=== PATIENT | male | born 1950 | race Caucasian/White ===

== ENCOUNTER 2017-12-10 10:49 | Day surgery (SDC) | payer BC ==
[2017-12-10] MEDS ORDERED: PROPOFOL INJ 200 MG/20 ML VIAL IV ONE ×2 (12:17→13:34)
[2017-12-10] MEDS ORDERED: ALBUTEROL SULFATE 0.083% NEB 2.5 MG/3 ML AMPUL NEB ONE ×2 (12:30→12:34)
--- NOTE | 2017-12-10 14:23 | EKG REPORT ---
SEVERITY:- NORMAL ECG - SINUS RHYTHM : Confirmed by: Vince Geronimo MD 10-Dec-2017 14:21:45
--- NOTE | 2017-12-10 14:44 | Operative Report ---
Operative Report DATE OF SURGERY: 12/10/17 Operative Report: The risks, benefits and alternatives of the procedure including the risks of bleeding, perforation requiring surgery are explained to the patient in detail and informed consent was obtained. The patient is brought back to the operating room and placed in the left, lateral decubital position. Timeout was called. Propofol medication is administered. A rectal examination is done which did not reveal any masses, tears or fissures. An Olympus videoscope was inserted into the patient's rectum. The scope was then carefully advanced all the way to the cecum. The cecum was identified by the usual anatomical landmarks including the ileocecal valve as well as the appendiceal office. Photodocumentation is obtained. Scope was then sequentially pulled back via the rest segments of the colon including the ascending colon, hepatic flexure, transverse colon, splenic flexure, descending colon and finally in to the rectosigmoid portions of the colon. Retroflexion maneuvers performed. PREOPERATIVE DIAGNOSIS: Colorectal cancer screening POSTOPERATIVE DIAGNOSIS: 4 polyps noted in the ascending colon which were removed via snare polypectomy. 1 descending colon polyp removed via snare polypectomy. 2 sigmoid colon polyps removed via snare polypectomy. Internal hemorrhoids OPERATION: Colonoscopy with snare polypectomy. Extended procedure time greater than 45 minutes SURGEON: ASHOK KAHN ANESTHESIA: LMAC TISSUE REMOVED OR ALTERED: Polyps retrieved. COMPLICATIONS: None. ESTIMATED BLOOD LOSS: None. INTRAOPERATIVE FINDINGS: As noted above. PROCEDURE: Patient tolerated the procedure well. No immediate postprocedure complications occasions are noted. Patient discharged in good condition. Discharge date 12/10/2017. Discharge diet: Regular. Discharge activity: Regular. 2-3 week follow-up to discuss findings. Patient is instructed to call the office or proceed to the emergency room should there be any further problems or questions. Wait on the pathology. 1 year surveillance colonoscopy.
[2017-12-10 14:50] VITALS: BP 141/77
== END 2017-12-10 14:35 | disposition home or self-care (01) ==
LOC: OROUT 10:49
PROVIDERS: ATTEND Internal Medicine Gastroenterology
DX: Z12.11 Encounter for screening for malignant neoplasm of colon (principal); D12.4 Benign neoplasm of descending colon; D12.5 Benign neoplasm of sigmoid colon; D12.2 Benign neoplasm of ascending colon; K64.8 Other hemorrhoids; F17.210 Nicotine dependence, cigarettes, uncomplicated; Z88.0 Allergy status to penicillin
CPT/HCPCS: 45385; 88305 ×2; 93005; 93010; J2704; 811